=== PATIENT | female | born 1995 | race Caucasian/White ===

== ENCOUNTER → 2019-10-12 21:51 | Observation (INO) ==
[2019-10-12 19:20] LABS: Basophils % 0.3 %; Eosinophils % 0.3 %; Hematocrit 37.1 % (35.3-44.9); Hemoglobin 12.4 g/dL (11.5-15.4); Immature Granulocytes % 1.1 % (0-4); Lymphocytes # 1.8 K/mcL (0.6-4.6); Lymphocytes % 14.9 %; Mean Corpuscular HGB Conc 33.4 g/dL (31.6-35.5); Mean Corpuscular Hemoglobin 30.8 pg (28.0-33.3); Mean Corpuscular Volume 92.1 fL (83.0-100.0); Mean Platelet Volume 11.6 fL (9.4-12.4); Monocytes % 8.3 %; Platelet Count 223 K/mcL (140-400); Red Blood Count 4.03 M/mcL (3.82-4.97); Red Cell Distribution Width 14.7 % (11.5-14.5); Segmented Neutrophils % 75.1 %
[2019-10-12 19:29] LABS: Amphetamine Screen,Urine Negative ng/mL (Cutoff=1000); Barbiturate Screen,Urine Negative ng/mL (Cutoff=200); Benzodiazepines Screen,Urine Negative ng/mL (Cutoff=200); Cannabinoid Screen,Urine Negative ng/mL (Cutoff = 50); Cocaine Screen,Urine Negative ng/mL (Cutoff= 300); Opiate Screen,Urine Negative ng/mL (Cutoff=300); Phencyclidine Screen,Urine Negative ng/mL (Cutoff=25); Protein/Creatinine Ratio,Urine 0.22 mg/mg (0.00-0.20)
[2019-10-12 19:34] LABS: Alanine Aminotransferase 19 Units/L (7-52); Aspartate Amino Transferase 19 Units/L (13-39); BUN/Creatinine Ratio 9 (6-26); Blood Urea Nitrogen 5 mg/dL (6-20); Lactate Dehydrogenase 149 Units/L (140-271); Uric Acid 4.6 mg/dL (2.3-7.6); eGFR For African Americans > 60 (> 60); eGFR For Non-African Americans > 60 (> 60)
[2019-10-12 21:42] LABS: Bilirubin,Urine Negative (Negative); Blood,Urine Negative (Negative); Clarity,Urine Cloudy (Clear); Color,Urine Yellow (Yellow); Glucose,Urine (UA) Normal (Normal); Ketones,Urine Negative (Negative); Leukocyte Esterase,Urine Negative (Negative); Nitrite,Urine Negative (Negative); PH,Urine 7.5 pH Units (5.0-8.0); Protein,Urine Negative (Neg-Trace); Specific Gravity,Urine 1.009 (1.010-1.025); Urobilinogen,Urine Normal (Normal)
[2019-10-12 21:45] LABS: Bacteria,Urine Moderate per hpf (None-Few); Hyaline Casts,Urine None Seen per lpf (None-Few); RBC,Urine 0-3 per hpf (0-3); Squamous Epithelial Cell,Urine Many per lpf (None-Few)
[~2019-10-12 21:51] MED LIST: NIFEdipine 10 MG CAPSULE PO ONE; Ringers Solution, Lactated 1,000 ML ONE
== END | disposition home or self-care (01) ==
LOC: 1NENULAB
PROVIDERS: ADMIT Advanced Practice Midwife; ATTEND Advanced Practice Midwife

== ENCOUNTER → 2019-10-24 18:10 | Observation (INO) ==
[2019-10-24 16:45] LABS: Basophils % 0.3 %; Eosinophils % 0.1 %; Hematocrit 35.4 % (35.3-44.9); Hemoglobin 12.2 g/dL (11.5-15.4); Immature Granulocytes % 1.3 % (0-4); Lymphocytes # 1.6 K/mcL (0.6-4.6); Lymphocytes % 11.7 %; Mean Corpuscular HGB Conc 34.5 g/dL (31.6-35.5); Mean Corpuscular Hemoglobin 30.3 pg (28.0-33.3); Mean Corpuscular Volume 88.1 fL (83.0-100.0); Mean Platelet Volume 12.1 fL (9.4-12.4); Monocytes % 7.1 %; Neutrophils # 10.7 K/mcL (1.6-8.9); Platelet Count 214 K/mcL (140-400); Red Blood Count 4.02 M/mcL (3.82-4.97); Red Cell Distribution Width 14.7 % (11.5-14.5); Segmented Neutrophils % 79.5 %; White Blood Count 13.5 K/mcL (4.3-11.1)
[2019-10-24 17:02] LABS: Alanine Aminotransferase 12 Units/L (7-52); Aspartate Amino Transferase 18 Units/L (13-39); BUN/Creatinine Ratio 14 (6-26); Blood Urea Nitrogen 6 mg/dL (6-20); Lactate Dehydrogenase 192 Units/L (140-271); Uric Acid 5.1 mg/dL (2.3-7.6); eGFR For African Americans > 60 (> 60); eGFR For Non-African Americans > 60 (> 60)
[2019-10-24 17:26] LABS: Protein/Creatinine Ratio,Urine 0.23 mg/mg (0.00-0.20)
== END | disposition home or self-care (01) ==
LOC: 1NENULAB
PROVIDERS: ADMIT Advanced Practice Midwife; ATTEND Advanced Practice Midwife

== ENCOUNTER 2019-10-27 07:46 | Inpatient (IN) ==
[2019-10-26 16:29] LABS: Basophils % 0.3 %; Eosinophils % 0.2 %; Hematocrit 34.5 % (35.3-44.9); Hemoglobin 11.9 g/dL (11.5-15.4); Immature Granulocytes % 1.3 % (0-4); Lymphocytes # 1.4 K/mcL (0.6-4.6); Lymphocytes % 13.1 %; Mean Corpuscular HGB Conc 34.5 g/dL (31.6-35.5); Mean Corpuscular Hemoglobin 30.4 pg (28.0-33.3); Mean Platelet Volume 11.5 fL (9.4-12.4); Monocytes # 0.9 K/mcL (0.0-1.3); Monocytes % 8.2 %; Neutrophils # 8.3 K/mcL (1.6-8.9); Platelet Count 224 K/mcL (140-400); Red Blood Count 3.92 M/mcL (3.82-4.97); Red Cell Distribution Width 15.1 % (11.5-14.5); Segmented Neutrophils % 76.9 %; White Blood Count 10.8 K/mcL (4.3-11.1)
[2019-10-26 16:42] LABS: Protein/Creatinine Ratio,Urine 0.22 mg/mg (0.00-0.20)
[2019-10-26 16:51] LABS: Alanine Aminotransferase 16 Units/L (7-52); Aspartate Amino Transferase 20 Units/L (13-39); BUN/Creatinine Ratio 18 (6-26); Blood Urea Nitrogen 7 mg/dL (6-20); Lactate Dehydrogenase 144 Units/L (140-271); Uric Acid 5.2 mg/dL (2.3-7.6); eGFR For African Americans > 60 (> 60); eGFR For Non-African Americans > 60 (> 60)
[2019-10-26] MEDS: Metoclopramide 10 MG/2 ML VIAL IVP ONE (17:36)
[2019-10-27] MEDS: Metoclopramide 10 MG/2 ML VIAL IVP ONE (02:51)
[~2019-10-27 07:46] MED LIST changes: +Acetaminophen 325 MG TABLET PO ONE; +Betamethasone Acet/SodPhos 30 MG/5 ML VIAL IM SCH; +Calcium Gluconate 1,000 MG/10 ML VIAL IVP PRN; +Famotidine 20 MG/2 ML VIAL IVP PRN; +Metoclopramide 10 MG/2 ML VIAL IVP ONE; +Metoclopramide 10 MG/2 ML VIAL IVP PRN; -NIFEdipine 10 MG CAPSULE PO ONE; +Naloxone 0.4 MG/ML INJ IVP PRN; +Ringers Solution, Lactated 1,000 ML IVC ONE; -Ringers Solution, Lactated 1,000 ML ONE
[2019-10-27] MEDS ORDERED: Ringers Solution, Lactated 1,000 ML ONE ×2 (07:51→19:28)
[2019-10-27] MEDS: Magnesium Sulf 20gm/LR 500mL 20 GM/500 ML IV.SOLN IVC SCH ×2 (08:31→18:18)
[2019-10-27] MEDS ORDERED: Penicillin G Potassium 5,000,000 UNIT in 0.9 % Sodium Chloride Mini Bag 100 ML IVPB ONE (08:38)
[2019-10-27 08:39] LABS: Basophils % 0.1 %; Hematocrit 34.9 % (35.3-44.9); Hemoglobin 12.1 g/dL (11.5-15.4); Immature Granulocytes % 1.6 % (0-4); Lymphocytes # 1.1 K/mcL (0.6-4.6); Lymphocytes % 6.5 %; Mean Corpuscular HGB Conc 34.7 g/dL (31.6-35.5); Mean Corpuscular Hemoglobin 30.6 pg (28.0-33.3); Mean Corpuscular Volume 88.1 fL (83.0-100.0); Monocytes # 0.5 K/mcL (0.0-1.3); Neutrophils # 14.5 K/mcL (1.6-8.9); Platelet Count 236 K/mcL (140-400); Red Blood Count 3.96 M/mcL (3.82-4.97); Red Cell Distribution Width 14.9 % (11.5-14.5); Segmented Neutrophils % 88.8 %
[2019-10-27 08:40] LABS: White Blood Count 16.3 K/mcL (4.3-11.1)
[2019-10-27 08:59] LABS: Alanine Aminotransferase 17 Units/L (7-52); Aspartate Amino Transferase 18 Units/L (13-39); BUN/Creatinine Ratio 14 (6-26); Blood Urea Nitrogen 7 mg/dL (6-20); Lactate Dehydrogenase 160 Units/L (140-271); Uric Acid 5.3 mg/dL (2.3-7.6); eGFR For African Americans > 60 (> 60); eGFR For Non-African Americans > 60 (> 60)
[2019-10-27] MEDS ORDERED: miSOPROStoL 25 MCG TABLET PO PRN (09:31)
[2019-10-27] MEDS: Ondansetron 4 MG/2 ML VIAL IVP PRN ×2 (10:30→16:01)
[2019-10-27] MEDS: *HR* FentaNYL (PF) 100 MCG/2 ML VIAL IVP PRN ×2 (10:30→16:01)
[2019-10-27] MEDS ORDERED: EPHEDrine 50 MG/ML VIAL IVP PRN (13:03)
[2019-10-27] MEDS ORDERED: Epidural Premix (fent/bupiv) 110 ML EP SCH (13:15)
[2019-10-27] MEDS ORDERED: *HR* Labetalol 20 MG/4 ML SYRINGE IVP ONE ×2 (13:16→17:59)
[2019-10-27] MEDS: Penicillin G Potassium 2,500,000 UNIT in 0.9 % Sodium Chloride 100 ML IVPB SCH ×2 (13:43→17:45)
[2019-10-27] MEDS ORDERED: Oxytocin 20 units/ LR 1000 mL 20 UNIT/1,000 ML BAG IVC SCH (14:30)
[2019-10-27] MEDS ORDERED: *HR* FentaNYL (PF) 100 MCG/2 ML VIAL ONE (18:27)
[2019-10-27] MEDS ORDERED: Bupivacaine-MPF 0.25% 10 ML VIAL ONE (18:28)
[2019-10-28] MEDS ORDERED: Measles/Mumps/Rubella Vacc 0.5 ML VIAL SQ PRN (00:53)
[2019-10-28] MEDS ORDERED: Oxytocin 20 units/ LR 1000 mL 20 UNIT/1,000 ML BAG IVC SCH (00:53)
[2019-10-28] MEDS ORDERED: Rho Immune Globulin 1,500 UNIT SYRINGE IM PRN (00:53)
[2019-10-28] MEDS: Acetaminophen 325 MG TABLET PO PRN ×2 (01:50→08:19)
[2019-10-28] MEDS ORDERED: Magnesium Sulf 20gm/LR 500mL 20 GM/500 ML IV.SOLN IVC SCH (03:30)
[2019-10-28 05:02] LABS: Basophils % 0.2 %; Hematocrit 29.5 % (35.3-44.9); Lymphocytes # 1.2 K/mcL (0.6-4.6); Lymphocytes % 6.8 %; Mean Corpuscular HGB Conc 32.9 g/dL (31.6-35.5); Mean Corpuscular Hemoglobin 30.6 pg (28.0-33.3); Mean Corpuscular Volume 93.1 fL (83.0-100.0); Mean Platelet Volume 12.1 fL (9.4-12.4); Monocytes # 1.4 K/mcL (0.0-1.3); Monocytes % 7.6 %; Neutrophils # 14.9 K/mcL (1.6-8.9); Platelet Count 226 K/mcL (140-400); Red Blood Count 3.17 M/mcL (3.82-4.97); Red Cell Distribution Width 15.3 % (11.5-14.5); Segmented Neutrophils % 84.4 %; White Blood Count 17.7 K/mcL (4.3-11.1)
[2019-10-28 05:05] LABS: Hemoglobin 9.7 g/dL (11.5-15.4)
[2019-10-28 05:13] LABS: Alanine Aminotransferase 13 Units/L (7-52); Aspartate Amino Transferase 21 Units/L (13-39); BUN/Creatinine Ratio 11 (6-26); Blood Urea Nitrogen 6 mg/dL (6-20); Lactate Dehydrogenase 241 Units/L (140-271); eGFR For African Americans > 60 (> 60); eGFR For Non-African Americans > 60 (> 60)
[2019-10-28] MEDS ORDERED: Benzocaine/Menthol 56 GM AEROSOL SPRAY TP PRN (06:55)
[2019-10-28] MEDS ORDERED: Lanolin 7 G OINT...G. TP PRN (06:55)
[2019-10-28] MEDS: Prenatal Vit/FA 1 EACH TABLET PO SCH (08:18)
[2019-10-28] MEDS ORDERED: NON-FORMULARY MEDICATION 1 EACH EACH (Pnv Cmb#21/Iron/Folic Acid [Prenatal Complete Caplet PO SCH (09:00)
[2019-10-28] MEDS ORDERED: Acetaminophen 325 MG TABLET PO ONE (09:06)
[2019-10-28] MEDS ORDERED: Saline Nasal Spray 44 ML BOTTLE NS PRN (09:07)
[2019-10-28] MEDS ORDERED: Ringers Solution, Lactated 1,000 ML ONE (13:56)
[2019-10-29] MEDS: Prenatal Vit/FA 1 EACH TABLET PO SCH (09:18)
[2019-10-30 07:53] VITALS: BP 139/97
[2019-10-30] MEDS: Prenatal Vit/FA 1 EACH TABLET PO SCH (08:25)
== END 2019-10-30 11:50 | disposition home or self-care (01) | DRG 806 ==
LOC: 1NENULAB → 1NENUOBS 10-28 00:51
PROVIDERS: ADMIT Advanced Practice Midwife; ATTEND Advanced Practice Midwife

== ENCOUNTER 2020-09-01 17:08 | Observation (INO) ==
[2020-09-01 20:18] LABS: Basophils % 0.6 %; Eosinophils % 0.1 %; Hematocrit 42.7 % (35.3-44.9); Hemoglobin 14.1 g/dL (11.5-15.4); Immature Granulocytes % 0.1 % (0-4); Lymphocytes % 27.8 %; Mean Corpuscular Hemoglobin 29.9 pg (28.0-33.3); Mean Corpuscular Volume 90.7 fL (83.0-100.0); Mean Platelet Volume 11.5 fL (9.4-12.4); Monocytes # 0.5 K/mcL (0.0-1.3); Monocytes % 7.2 %; Neutrophils # 4.7 K/mcL (1.6-8.9); Platelet Count 289 K/mcL (140-400); Red Blood Count 4.71 M/mcL (3.82-4.97); Red Cell Distribution Width 13.6 % (11.5-14.5); Segmented Neutrophils % 64.2 %; White Blood Count 7.3 K/mcL (4.3-11.1)
[2020-09-01 20:49] LABS: Albumin 4.9 g/dL (3.5-5.7); Albumin/Globulin Ratio 2.2 (1.1-2.2); Bilirubin,Direct 0.1 mg/dL (0.0-0.2); Bilirubin,Indirect 0.5 mg/dL (0.0-1.0); Bilirubin,Total 0.6 mg/dL (0.3-1.0); Globulin 2.2 g/dL (2.4-3.5); Total Protein 7.1 g/dL (6.4-8.9)
[2020-09-01] MEDS: Ondansetron 4 MG/2 ML VIAL IVP SCH (20:51)
[2020-09-01] MEDS: 0.9 % Sodium Chloride 1,000 ML IVC SCH (21:10)
[2020-09-01 23:51] LABS: Adenovirus Not Detected (Not Detect); Bordetella Pertussis Not Detected (Not Detect); Chlamydophila pneumoniae Not Detected (Not Detect); Coronavirus 229E Not Detected (Not Detect); Coronavirus HKU1 Not Detected (Not Detect); Coronavirus NL63 Not Detected (Not Detect); Coronavirus OC43 Not Detected (Not Detect); Human Metapneumovirus Not Detected (Not Detect); Human Rhinovirus/Enterovirus Not Detected (Not Detect); Influenza A Subtype 2009 H1 Not Detected (Not Detect); Influenza B Not Detected (Not Detect); Mycoplasma pneumoniae Not Detected (Not Detect); Parainfluenza Virus 1 Not Detected (Not Detect); Parainfluenza Virus 2 Not Detected (Not Detect); Parainfluenza Virus 3 Not Detected (Not Detect); Parainfluenza Virus 4 Not Detected (Not Detect); Respiratory Syncytial Virus Not Detected (Not Detect); SARS-CoV-2 Not Detected (Not Detect)
[2020-09-02] MEDS: Ketorolac 15 MG/ML VIAL IVP SCH ×2 (00:03→05:37)
[2020-09-02] MEDS: 0.9 % Sodium Chloride 1,000 ML IVC SCH (05:38)
[2020-09-02] MEDS ORDERED: Ketorolac 15 MG/ML VIAL IVP PRN (05:45)
[2020-09-02] MEDS ORDERED: Acetaminophen IV 1,000 MG/100 ML BAG IVPB ONE (09:15)
[2020-09-02] MEDS ORDERED: CeFAZolin Syr 2,000MG/20 ML 2,000 MG/20 ML SYRINGE IVPB ONE (09:16)
[2020-09-02] MEDS ORDERED: Pantoprazole 40 MG VIAL IVP SCH (09:30)
[2020-09-02] MEDS ORDERED: *HR* OxyCODONE Immed Rel 5 MG TABLET PO PRN (12:23)
[2020-09-02] MEDS ORDERED: Scopolamine Patch 1.5 MG PATCH.TD72 ONE (12:26)
[2020-09-02] MEDS ORDERED: Ringers Solution, Lactated 1,000 ML IV SCH (12:30)
[2020-09-02] MEDS ORDERED: Scopolamine Patch 1.5 MG PATCH.TD72 TD ONE (12:30)
[2020-09-02] MEDS ORDERED: cefOXitin 2,000 MG in Water for inj. (sterile) 20 ML IVP ONE (12:37)
[2020-09-02] MEDS ORDERED: *HR* Succinylcholine 200 MG/10 ML VIAL IVP ONE (12:40)
[2020-09-02] MEDS ORDERED: *HR* Rocuronium Bromide 50 MG/5 ML VIAL ONE (12:40)
[2020-09-02] MEDS ORDERED: Ondansetron 4 MG/2 ML VIAL ONE ×2 (12:40→15:18)
[2020-09-02] MEDS ORDERED: Lidocaine -MPF 2% 2 ML VIAL ONE (12:40)
[2020-09-02] MEDS ORDERED: Lidocaine HCL 4 ML Topical Solution (Laryng-O-Jet Kit Sterile Pak) TP ONE (12:40)
[2020-09-02] MEDS ORDERED: Dexamethasone 4 MG/ML VIAL ONE (12:40)
[2020-09-02] MEDS ORDERED: *HR* Propofol 200 MG/20 ML VIAL IVP ONE (12:41)
[2020-09-02] MEDS ORDERED: *HR* Midazolam HCl 2 MG/2 ML VIAL ONE (12:41)
[2020-09-02] MEDS ORDERED: *HR* FentaNYL (PF) 100 MCG/2 ML VIAL ONE (12:41)
[2020-09-02] MEDS ORDERED: CefOXitin 2,000 MG VIAL ONE (12:46)
[2020-09-02] MEDS ORDERED: *HR* HYDROMORPHONE 2 MG/ML VIAL ONE (13:40)
[2020-09-02] MEDS ORDERED: Ketorolac 30 MG/ML VIAL ONE (13:41)
[2020-09-02] MEDS ORDERED: *HR* PHENYLEPHRINE 1,000 MCG/10 ML SYRINGE IVP ONE (13:50)
[2020-09-02] MEDS: *HR* HYDROmorphone PF 0.5 MG/0.5 ML SYRINGE IVP PRN ×2 (14:50→14:59)
[2020-09-02] MEDS: Ondansetron 4 MG/2 ML VIAL IVP SCH (15:21)
[2020-09-02 18:39] VITALS: BP 118/65
[2020-09-03] MEDS ORDERED: Ondansetron 4 MG/2 ML VIAL IVP SCH
[2020-09-03] MEDS ORDERED: Pantoprazole 40 MG VIAL IVP SCH (09:00)
== END 2020-09-02 20:00 | disposition home or self-care (01) ==
LOC: 3ANU
PROVIDERS: ADMIT Surgery; ATTEND Surgery